=== PATIENT | female | born 1930 | race Caucasian/White ===

== ENCOUNTER 2016-11-03 18:53 | Emergency (ER) | payer MEDICARE ==
[~2016-11-03] VITALS: Ht 162.6 cm; Wt 114.7 kg
[~2016-11-03 18:53] MED LIST: ATEN1TAB74 PO; BACT800T5 PO; COQ1200C3 PO; COUM5TAB PO; MECL25CH PO; WARF6 PO; ZOFR4TAB3 SL
[2016-11-03 18:56] VITALS: BP 188/81; PULSE 68; RESP 20; TEMP 96; O2SAT 98
[2016-11-03] MEDS ORDERED: COUM7.5T PO (19:12)
[2016-11-03] MEDS ORDERED: MECL-62 PO (19:12)
[2016-11-03] MEDS ORDERED: ATEN50TA PO (19:12)
[2016-11-03] MEDS ORDERED: COQ-100C5 PO (19:12)
[2016-11-03] MEDS ORDERED: COUM10TA PO (19:12)
[2016-11-03 19:17] VITALS: BP 197/77; PULSE 73; O2SAT 96
--- NOTE | 2016-11-03 19:37 | PD ---
HPI Chief Complaint: Fall Time Seen by Provider: 19:27 Travel History International Travel<30 days: No Contact w/Intl Traveler<30days: No Traveled to known affect area: No History of Present Illness HPI The patient is an 86-year-old female that was cleaning the windows of a spiritism when she lost balance and fell. There was no loss of consciousness, she did hit her mid occipital area of the scalp. Her main complaint is pain in the low back, coccygeal area and bilateral pelvis. She is able to walk around but with pain and the pain gradually increased to where she finally came in. She did have some nausea following the fall but no vomiting. She denies any numbness, weakness or radiation of pain down her legs. She is on Coumadin for atrial fibrillation. She denies any headache. PFSH Past Medical History Hx Anticoagulant Therapy: Yes (COUMADIN) Arthritis: Yes Blood Disorders: No Heart Rhythm Problems: Yes (A FIB) Cancer: No Cardiovascular Problems: Yes (htn on meds, a-fib) Congestive Heart Failure: Yes Endocrine: No Genitourinary: No Hepatitis: No Hypertension: Yes Immune Disorder: No Kidney Stones: No Musculoskeletal: No Neurologic: No Psychiatric: No Reproductive: No Respiratory: No Immunizations Current: Yes (SHINGLES: 2014) Renal Failure: No Influenza Vaccination: Yes ?: Not : 5 Para: 5 Past Surgical History Abdominal Surgery: Yes AICD: No Appendectomy: Yes Arteriovenous Shunt: No Cardiac Surgery: No Cholecystectomy: Yes Ear Surgery: No Endocrine Surgery: No Eye Surgery: Yes (CATARACTS, RETINAL TEAR REPAIRS BILATERAL) Genitourinary Surgery: No Gynecologic Surgery: Yes Hysterectomy: Yes Insulin Pump: No Joint Replacement: Yes (BILATERAL KNEES) Oral Surgery: No Pacemaker: No Thoracic Surgery: No Other Surgery: No Social History Alcohol Use: No Tobacco Use: No (QUIT AGE 37) Substance Use: No Allergies-Medications (Allergen,Severity, Reaction): Coded Allergies: adhesive (Unverified Allergy, Intermediate, PT STATES NO ALLERGY TO THIS, 11/03/16) latex (Unverified Allergy, Intermediate, ITCHING/RASH, 11/03/16) Reported Meds & Prescriptions Reported Meds & Active Scripts Active Reported Coumadin (Warfarin) 10 Mg Tab 8 Mg PO DAILY Coumadin (Warfarin) 7.5 Mg Tab 7 Mg PO Meclizine (Meclizine HCl) 25 Mg Tab 25 Mg PO TID PRN Coq-10 Tr (Coenzyme Q10 (Ubidecarenone)) 100 Mg Cap 200 Mg PO HS Atenolol 50 Mg Tab 50 Mg PO DAILY Review of Systems Except as stated in HPI: all other systems reviewed are Neg Physical Exam Narrative GENERAL: The patient is obese, alert, oriented 3 and slight apparent distress with her low back pain. SKIN: Focused skin assessment warm/dry. HEAD: There is a contusion on the mid occipital area but no associated skull deformity. Normocephalic. Neither raccoon eyes nor quintana sign is present. EYES: Pupils equal and round. No scleral icterus. No injection or drainage. ENT: No nasal bleeding or discharge. Mucous membranes pink and moist. There is no hemotympanum present. NECK: Trachea midline. No JVD. CARDIOVASCULAR: Regular rate and rhythm. No murmur appreciated. RESPIRATORY: No accessory muscle use. Clear to auscultation. Breath sounds equal bilaterally. GASTROINTESTINAL: Abdomen soft, non-tender, nondistended. Hepatic and splenic margins not palpable. MUSCULOSKELETAL: No obvious deformities. No clubbing. No cyanosis. No edema. Straight leg raising is normal, deep tendon reflexes are 0 bilaterally both patella and Achilles and pinprick is normal. There is tenderness diffusely in the low back and over the coccygeal area. No obvious bony deformity is present. There is diffuse tenderness over both sides of the pelvis laterally. NEUROLOGICAL: Awake and alert. No obvious cranial nerve deficits. Motor grossly within normal limits. Normal speech. PSYCHIATRIC: Appropriate mood and affect; insight and judgment normal. Data Data Last Documented VS Vital Signs Date Time Temp Pulse Resp B/P (MAP) Pulse Ox O2 Delivery O2 Flow Rate FiO2 11/03/16 20:41 60 183/86 (118) 11/03/16 19:17 96 Room Air 11/03/16 18:56 [address] Brain W/O Iv Contrast(Rout) (11/03/16 19:27) Ct Lumb Spine W/O Contrast (11/03/16 19:27) Pelvis, Ap Only (Routine) (11/03/16 19:30) MDM Medical Decision Making Medical Screen Exam Complete: Yes Emergency Medical Condition: Yes Medical Record Reviewed: Yes Interpretation(s) The CT brain shows central cerebral atrophy and no acute infarct, hemorrhage or mass effect noted. The pelvis shows no acute fracture dislocation, mild degenerative changes involving the lumbar spine, bilateral hips and symphysis pubis are noted.The CT of the lumbar spine shows severe spinal stenosis and bilateral foraminal narrowing at L4 5 with moderate spinal stenosis and bilateral foraminal narrowing at L3-L4 and mild spinal stenosis with bilateral foraminal narrowing at L2-L3 and minimal disc bulge at L1-L2 and mild bilateral foraminal narrowing at L5-S1. There is fitted set joint hypertrophy bilaterally L1 through L5 and grade 1 anterior listhesis of L4 on L5. No fractures noted. Differential Diagnosis Compression fracture lumbar spine, fractured pelvis, fractured skull, intracranial bleed, scalp contusion, acute lumbar strain, multiple contusions Narrative Course The patient has significant foraminal narrowing of the lumbosacral spine on CT. She says she has a walker at home and can ambulate well with this. She will follow up with her primary care physician next week. 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 Use your walker at home for the next few days until these aches and pains subside. Do not drink alcohol or drive on the tramadol that I wrote. Med/Other Pt SpecificInfo: Prescription(s) given Scripts Tramadol (Tramadol) 50 Mg Tab 50 MG PO Q6H Y for PAIN, #15 TAB 0 Refills Prov: Eugene Peña MD 11/03/16 Disposition: 01 DISCHARGE HOME Condition: Stable Eugene Peña MD Nov 03, 2016 19:37
--- NOTE | 2016-11-03 19:53 | RADRPT ---
EXAM DATE/TIME: 11/03/2016 19:40 [facility] COMPARISON: No previous studies available for comparison. INDICATIONS : Status post fall. Hit back of head. RADIATION DOSE: 63.36 CTDIvol (mGy) MEDICAL HISTORY : Hypertension. SURGICAL HISTORY : cataract ENCOUNTER: Initial ACUITY: 1 day PAIN SCALE: 0/10 LOCATION: Cranial TECHNIQUE: Multiple contiguous axial images were obtained of the head. Using automated exposure control and adj ustment of the mA and/or kV according to patient size, radiation dose was kept as low as reasonably a chievable to obtain optimal diagnostic quality images. DICOM format image data is available electro nically for review and comparison. FINDINGS: There is central cerebral atrophy. There is no acute infarct, acute hemorrhage, mass effect or extra -axial fluid collections. No skull fracture is noted. CONCLUSION: 1. Central cerebral atrophy. 2. No acute infarct, acute hemorrhage, mass effect or extra-axial fluid collections. Joe Montalvo MD on November 03, 2016 at 19:49 Board Certified Radiologist. This report was verified electronically.
--- NOTE | 2016-11-03 20:25 | RADRPT ---
EXAM DATE/TIME: 11/03/2016 20:04 [facility] COMPARISON: No previous studies available for comparison. INDICATIONS : Trauma. Fall. MEDICAL HISTORY : None. SURGICAL HISTORY : Hysterectomy. Cholecystectomy. ENCOUNTER: Initial ACUITY: 1 day PAIN SCORE: 8/10 LOCATION: Pelvis FINDINGS: There is no acute fracture or dislocation of the bony pelvis. Mild degenerative changes are noted in volving the lower lumbar spine and bilateral hips. Mild degenerative changes are also noted involvin g the symphysis pubis. CONCLUSION: 1. No acute fracture or dislocation. 2. Mild degenerative changes involving the lumbar spine, bilateral hips and symphysis pubis. Joe Montalvo MD on November 03, 2016 at 20:21 Board Certified Radiologist. This report was verified electronically.
[2016-11-03 20:41] VITALS: BP 183/86; PULSE 60
--- NOTE | 2016-11-03 21:00 | RADRPT ---
EXAM DATE/TIME: 11/03/2016 19:44 [facility] COMPARISON: No previous studies available for comparison. INDICATIONS : Patient fell and hurt tailbone. Bilateral back and coccyx pain. RADIATION DOSE: 40.36 CTDIvol (mGy) MEDICAL HISTORY : Congestive heart failure. Hypertension. SURGICAL HISTORY : Appendectomy. Cholecystectomy. Hysterectomy. ENCOUNTER: Initial ACUITY: 1 day PAIN SCALE: 10/10 LOCATION: Bilateral buttock and lumbar TECHNIQUE: Volumetric scanning of the lumbar spine was performed. Multiplanar reconstructions in the sagittal, coronal and oblique axial planes were performed. Using automated exposure control and adjustment of the mA and/or kV according to patient size, radiation dose was kept as low as reasonably achievable t o obtain optimal diagnostic quality images. DICOM format image data is available electronically for review and comparison. FINDINGS: There is grade I anterolisthesis of L4 in relation to L5. Severe circumferential spinal stenosis and bilateral foraminal narrowing is noted at L4-L5. There is no acute compression fracture of the lumb ar spine. Mild scoliosis of the lumbar spine is noted. T12-L1: There is no significant spinal stenosis, disc bulge or herniation. The bilateral neural foramina are patent. The facet joints and ligaments are unremarkable. L1-L2: There is a minimal diffuse disc bulge as well as mild facet joint hypertrophy bilaterally resulting i n no spinal stenosis or neural foraminal narrowing. No focal disc herniation is noted. L2-L3: There is some mild spinal stenosis and bilateral foraminal narrowing secondary to a combination of di ffuse disc bulge, facet joint hypertrophy and ligamentous laxity. No focal disc herniation is noted. L3-L4: There is moderate circumferential spinal stenosis and bilateral foraminal narrowing secondary to a co mbination of diffuse disc bulge, facet joint hypertrophy and ligamentous laxity. No focal disc herni ation is noted. L4-L5: There is severe circumferential spinal stenosis and bilateral foraminal narrowing secondary to a comb ination of diffuse disc bulge, facet joint hypertrophy and ligamentous laxity. Vacuum facets are not ed bilaterally. There is grade I anterolisthesis of L4 in relation to L5. L5-S1: There is no significant spinal stenosis. Facet joint hypertrophy is noted bilaterally which results in mild bilateral foraminal narrowing. No focal disc herniation is noted. CONCLUSION: 1. Severe spinal stenosis and bilateral foraminal narrowing at L4-L5. 2. Moderate spinal stenosis and bilateral foraminal narrowing at L3-L4. 3. Mild spinal stenosis and bilateral foraminal narrowing at L2-L3. 4. Minimal diffuse disc bulge at L1-L2 resulting in no spinal stenosis or neural foraminal narrowing . 5. Mild bilateral foraminal narrowing at L5-S1 predominantly related to facet joint hypertrophy bila terally. 6. Facet joint hypertrophy bilaterally from L1 through S1. 7. Grade I anterolisthesis of L4 in relation to L5. Joe Montalvo MD on November 03, 2016 at 20:43 Board Certified Radiologist. This report was verified electronically.
[2016-11-03] MEDS ORDERED: TRAM50TA PO (21:33)
== END 2016-11-03 21:40 | disposition home or self-care (01) ==
LOC: PHED 18:53
DX: T14.8 Other injury of unspecified body region (principal); W01.0XXA Fall on same level from slipping, tripping and stumbling without subsequent striking against object, initial encounter; Y93.E9 Activity, other interior property and clothing maintenance; Y92.22 Religious institution as the place of occurrence of the external cause
CPT/HCPCS: 70450; 72131; 72170; 99285

== ENCOUNTER 2017-04-03 17:16 | Observation (INO) | payer MEDICARE ==
[~2017-04-03] VITALS: Ht 162.6 cm; Wt 115.6 kg
[2017-04-03] VITALS (9 sets, daily range): BP systolic 102–162; BP diastolic 60–80; PULSE 67–112; RESP 16–20; TEMP 96.6–97.5; O2SAT 96–100
[~2017-04-03 17:16] MED LIST changes: -ATEN1TAB74 PO; +ATEN50TA PO; -BACT800T5 PO; +COQ-100C5 PO; -COQ1200C3 PO; +COUM10TA PO; -COUM5TAB PO; +COUM7.5T PO; +MECL-62 PO; -MECL25CH PO; +TRAM50TA PO; -WARF6 PO; -ZOFR4TAB3 SL
[2017-04-03] MEDS ORDERED: TRIA1CAP6 PO (17:36)
[2017-04-03] MEDS ORDERED: SODIUM CHLORIDE 0.9% FLUSH 10 ML FLUSH IVF PRN (18:00)
[2017-04-03] MEDS ORDERED: DILTIAZEM HCL 25 MG/5 ML VIAL IV ONE ×2 (18:00→21:00)
--- NOTE | 2017-04-03 18:03 | PD ---
HPI Chief Complaint: Cardiac Complaint Time Seen by Provider: 17:52 Travel History International Travel<30 days: No Contact w/Intl Traveler<30days: No Traveled to known affect area: No History of Present Illness HPI 86-year-old female with history of A. fib on Coumadin, here for evaluation of elevated heart rate and chest heaviness. The patient reports for the last couple of days she has felt some palpitations. Today when she checked her blood pressure she noticed her heart rate was severely elevated. She has been having intermittent episodes of substernal chest heaviness over the last couple of days which is worse with exertion. She has history of CHF and is on Lasix. She reports that about 2 weeks ago she had a bilateral lower extremity duplex ordered by her primary care physician Dr. Lackey and was reportedly negative. She denies history of DVT or PE. States that her lower extremity edema is no worse than it usually is. She gets slightly short of breath with exertion. No orthopnea. No shortest of breath at rest. No cough. No fevers, chills, or recent illness. She does not see a dehydrogenation operator regularly. PFSH Past Medical History Hx Anticoagulant Therapy: Yes (COUMADIN) Arthritis: Yes Blood Disorders: No Heart Rhythm Problems: Yes (A FIB) Cancer: No Cardiac Catheterization: Yes (a fib) Cardiovascular Problems: Yes (A. FIB, HTN) Congestive Heart Failure: Yes Diminished Hearing: No Endocrine: No Genitourinary: No Hepatitis: No Hypertension: Yes Immune Disorder: No Kidney Stones: No Musculoskeletal: No Neurologic: No Psychiatric: No Reproductive: No Respiratory: No Immunizations Current: Yes (SHINGLES: 2014) Renal Failure: No Tetanus Vaccination: Unknown Influenza Vaccination: Yes ?: Not : 5 Para: 5 Past Surgical History Abdominal Surgery: Yes AICD: No Appendectomy: Yes Arteriovenous Shunt: No Cardiac Surgery: No Cholecystectomy: Yes Ear Surgery: No Endocrine Surgery: No Eye Surgery: Yes (CATARACTS, RETINAL TEAR REPAIRS BILATERAL) Genitourinary Surgery: No Gynecologic Surgery: Yes Hysterectomy: Yes Insulin Pump: No Joint Replacement: Yes (BILATERAL KNEES) Oral Surgery: No Pacemaker: No Thoracic Surgery: No Other Surgery: No Social History Alcohol Use: No Tobacco Use: No (QUIT AGE 37) Substance Use: No Allergies-Medications (Allergen,Severity, Reaction): Coded Allergies: adhesive (Unverified Allergy, Intermediate, PT STATES NO ALLERGY TO THIS, 04/03/17) latex (Unverified Allergy, Intermediate, ITCHING/RASH, 04/03/17) Reported Meds & Prescriptions Reported Meds & Active Scripts Active Reported Dyrenium (Triamterene) 50 Mg Cap 50 Mg PO DAILY Coumadin (Warfarin) 10 Mg Tab 8 Mg PO DAILY Coumadin (Warfarin) 7.5 Mg Tab 7 Mg PO Coq-10 Tr (Coenzyme Q10 (Ubidecarenone)) 100 Mg Cap 200 Mg PO HS Atenolol 50 Mg Tab 50 Mg PO DAILY Review of Systems Except as stated in HPI: all other systems reviewed are Neg Physical Exam Narrative GENERAL: Well-developed, well-nourished, pleasant, comfortable, no apparent distress. SKIN: Focused skin assessment warm/dry. HEAD: Atraumatic. Normocephalic. EYES: Pupils equal and round. No scleral icterus. No injection or drainage. ENT: Mucous membranes pink and moist. NECK: Trachea midline. No JVD. CARDIOVASCULAR: Irregularly irregular, rate 130s. RESPIRATORY: No accessory muscle use. Clear to auscultation. Breath sounds equal bilaterally. GASTROINTESTINAL: Abdomen soft, non-tender, nondistended. MUSCULOSKELETAL: No obvious deformities. No clubbing. No cyanosis. Significant bilateral lower extremity edema from foot to thigh. NEUROLOGICAL: Awake and alert. No obvious cranial nerve deficits. Motor grossly within normal limits. Normal speech. PSYCHIATRIC: Appropriate mood and affect; insight and judgment normal. Data Data Last Documented VS Vital Signs Date Time Temp Pulse Resp B/P (MAP) Pulse Ox O2 Delivery O2 Flow Rate FiO2 04/03/17 20:10 87 16 116/72 (87) Room Air 04/03/17 19:05 98 2.00 04/03/17 17:24 97.5 Orders Orders Electrocardiogram (04/03/17 17:59) Ckmb (Isoenzyme) Profile (04/03/17 17:59) Complete Blood Count With Diff (04/03/17 17:59) Comprehensive Metabolic Panel (04/03/17 17:59) Magnesium (Mg) (04/03/17 17:59) Prothrombin Time / Inr (Pt) (04/03/17 17:59) Act Partial Throm Time (Ptt) (04/03/17 17:59) Troponin I (04/03/17 17:59) Chest, Single Ap (04/03/17 17:59) Ecg Monitoring (04/03/17 17:59) Bilateral Bp Monitoring (04/03/17 17:59) Iv Access Insert/Monitor (04/03/17 17:59) Oximetry (04/03/17 17:59) Oxygen Administration (04/03/17 17:59) Sodium Chloride 0.9% Flush (Ns Flush) (04/03/17 18:00) Diltiazem Inj (Cardizem Inj) (04/03/17 18:00) Ct Pulmonary Angiogram (04/03/17 ) Iodixanol 320 Inj (Rad Ct) (Visipaque 32 (04/03/17 20:20) Diltiazem Inj (Cardizem Inj) (04/03/17 21:00) Diltiazem (Cardizem) (04/03/17 21:00) Admit Order (Ed Use Only) (04/03/17 20:55) Labs Laboratory Tests Test 04/03/17 17:47 White Blood Count 5.7 TH/MM3 Red Blood Count 4.53 MIL/MM3 Hemoglobin 13.9 GM/DL Hematocrit 42.5 % Mean Corpuscular Volume 93.7 FL Mean Corpuscular Hemoglobin 30.7 PG Mean Corpuscular Hemoglobin Concent 32.8 % Red Cell Distribution Width 13.0 % Platelet Count 158 TH/MM3 Mean Platelet Volume 8.7 FL Neutrophils (%) (Auto) 60.5 % Lymphocytes (%) (Auto) 29.1 % Monocytes (%) (Auto) 8.7 % Eosinophils (%) (Auto) 1.2 % Basophils (%) (Auto) 0.5 % Neutrophils # (Auto) 3.4 TH/MM3 Lymphocytes # (Auto) 1.7 TH/MM3 Monocytes # (Auto) 0.5 TH/MM3 Eosinophils # (Auto) 0.1 TH/MM3 Basophils # (Auto) 0.0 TH/MM3 CBC Comment DIFF FINAL Differential Comment Prothrombin Time 17.2 SEC Prothromb Time International Ratio 1.7 RATIO Activated Partial Thromboplast Time 29.9 SEC Blood Urea Nitrogen 30 MG/DL Creatinine 1.40 MG/DL Random Glucose 101 MG/DL Total Protein 7.3 GM/DL Albumin 3.5 GM/DL Calcium Level 8.7 MG/DL Magnesium Level 2.0 MG/DL Alkaline Phosphatase 60 U/L Aspartate Amino Transf (AST/SGOT) 26 U/L Alanine Aminotransferase (ALT/SGPT) 23 U/L Total Bilirubin 0.3 MG/DL Sodium Level 139 MEQ/L Potassium Level 4.0 MEQ/L Chloride Level 103 MEQ/L Carbon Dioxide Level 30.0 MEQ/L Anion Gap 6 MEQ/L Estimat Glomerular Filtration Rate 36 ML/MIN Total Creatine Kinase 81 U/L Troponin I LESS THAN 0.02 NG/ML [facility] Medical Decision Making Medical Screen Exam Complete: Yes Emergency Medical Condition: Yes Medical Record Reviewed: Yes Interpretation(s) EKG: A. fib, rate 125, normal axis, normal intervals, moderate ST depressions, no ST segment elevations. Differential Diagnosis A. fib with RVR, ACS, CHF, PE, metabolic abnormality Narrative Course Initial vital signs show heart rate 112, blood pressure 106/80, pulse ox 96% on room air, oral temp of 97.5F. CBC is unremarkable. CMP is remarkable for BUN 30, creatinine 1.4, GFR 36 which is slightly worse than her baseline. Cardiac enzymes are negative. INR is subtherapeutic at 1.7. Chest x-ray: CONCLUSION: 1. Mild cardiomegaly. Minimal basilar atelectasis. Patient was made aware of all laboratory findings. She tells me that for the last week she has been having a sharp pain in her right posterior back which is worsened with deep inspiration. CT pulmonary angiogram ordered to rule out a PE. CT pulmonary angiogram: CONCLUSION: 1. Negative for pulmonary embolus. Minimal dependent atelectasis in the lungs. Mild cardiomegaly. Patient was made aware of all findings. She was given 10 mg of IV Cardizem shortly after arriving to the emergency department for heart rate in the 120s to 130s. Her heart rate initially improved to 80s to 90s. On reassessment a few hours later her heart rate returned to 110-120. She was given another 10 mg of IV Cardizem. Given uncontrolled rate of A. fib with RVR, the patient will be admitted for further treatment and evaluation. Case discussed with [facility] hospitalist Dr zhou who has agreed to admit the patient to his service. Diagnosis Primary Impression: Atrial fibrillation with RVR Additional Impression: Chest pain Venancio Neil MD Apr 03, 2017 18:03
[2017-04-03 18:28] LABS: AUTOMATED NEUTROPHIL # 3.4 TH/MM3 (1.8-7.7); BASOPHIL % 0.5 % (0.0-2.0); EOSINOPHIL # 0.1 TH/MM3 (0-0.4); EOSINOPHIL % 1.2 % (0.0-4.0); HEMATOCRIT 42.5 % (35.0-46.0); HEMOGLOBIN 13.9 GM/DL (11.6-15.3); LYMPH % 29.1 % (9.0-44.0); LYMPHOCYTE # 1.7 TH/MM3 (1.0-4.8); MEAN CELL VOLUME 93.7 FL (80.0-100.0); MEAN CORPUSCULAR HEMOGLOBIN 30.7 PG (27.0-34.0); MEAN CORPUSCULAR HGB CONC 32.8 % (32.0-36.0); MEAN PLATELET VOLUME 8.7 FL (7.0-11.0); MONO % 8.7 % (0.0-8.0); MONOCYTE # 0.5 TH/MM3 (0-0.9); NEUT % 60.5 % (16.0-70.0); PLATELET COUNT 158 TH/MM3 (150-450); RED BLOOD COUNT 4.53 MIL/MM3 (4.00-5.30); WHITE BLOOD COUNT 5.7 TH/MM3 (4.0-11.0)
[2017-04-03 18:39] LABS: CHLORIDE 103 MEQ/L (98-107); SODIUM (NA) 139 MEQ/L (136-145)
[2017-04-03 18:42] LABS: ALBUMIN 3.5 GM/DL (3.4-5.0); BLOOD UREA NITROGEN 30 MG/DL (7-18); CALCIUM 8.7 MG/DL (8.5-10.1); GLUCOSE,RANDOM 101 MG/DL (74-106)
[2017-04-03 18:44] LABS: INTERNATIONAL NORMALIZED RATIO 1.7 RATIO; PROTHROMBIN TIME - PATIENT 17.2 SEC (9.8-11.6)
[2017-04-03 18:45] LABS: ALT (GPT) 23 U/L (10-53); AST (GOT) 26 U/L (15-37)
[2017-04-03 18:46] LABS: GLOMERULAR FILTRATION RATE 36 ML/MIN (>89)
[2017-04-03 18:47] LABS: TOTAL BILIRUBIN ADULT 0.3 MG/DL (0.2-1.0); TOTAL PROTEIN 7.3 GM/DL (6.4-8.2)
[2017-04-03 18:48] LABS: ALKALINE PHOSPHATASE 60 U/L (45-117)
[2017-04-03 18:51] LABS: TROPONIN I LESS THAN 0.02 NG/ML (0.02-0.05)
--- NOTE | 2017-04-03 19:39 | RADRPT ---
EXAM DATE/TIME: 04/03/2017 18:31 [facility] COMPARISON: No previous studies available for comparison. INDICATIONS : Chest pain. MEDICAL HISTORY : Congestive heart failure. Hypertension. SURGICAL HISTORY : Hysterectomy. Appendectomy. Cholecystectomy. ENCOUNTER: Initial ACUITY: 1 day PAIN SCORE: 5/10 LOCATION: Bilateral chest FINDINGS: A single view of the chest demonstrates a mild cardiomegaly No focal infiltrate or effusion. No pneum othorax. CONCLUSION: 1. Mild cardiomegaly. Minimal basilar atelectasis. Naresh Wren MD on April 03, 2017 at 19:35 Board Certified Radiologist. This report was verified electronically.
[2017-04-03] MEDS ORDERED: IODIXANOL 320 MG/ML 10 ML VIAL (for Rad CT) IVCONTRAST ONE (20:20)
--- NOTE | 2017-04-03 20:35 | RADRPT ---
EXAM DATE/TIME: 04/03/2017 20:13 [facility] COMPARISON: No previous studies available for comparison. INDICATIONS : Tachycardia. IV CONTRAST: 50 cc Visipaque (iodixanol) IV RADIATION DOSE: 12.64 CTDIvol (mGy) MEDICAL HISTORY : Cardiovascular disease. Congestive heart failure. Hypertension. SURGICAL HISTORY : None. ENCOUNTER: Initial ACUITY: 1 day PAIN SCALE: 0/10 LOCATION: chest TECHNIQUE: Volumetric scanning of the chest was performed using a pulmonary embolism protocol MIP images were re constructed. Using automated exposure control and adjustment of the mA and/or kV according to patien t size, radiation dose was kept as low as reasonably achievable to obtain optimal diagnostic quality images. DICOM format image data is available electronically for review and comparison. Follow-up recommendations for detected pulmonary nodules are based at a minimum on nodule size and pa tient risk factors according to Fleischner Society Guidelines. FINDINGS: No filling defects to suggest pulmonary embolus. No pleural or pericardial effusion. Mild basilar ate lectasis. No adenopathy. No pleural or pericardial effusion. No acute findings in the upper abdomen. Mild coronary calcifications. CONCLUSION: 1. Negative for pulmonary embolus. Minimal dependent atelectasis in the lungs. Mild cardiomegaly. Naresh Wren MD on April 03, 2017 at 20:31 Board Certified Radiologist. This report was verified electronically.
[2017-04-03] MEDS ORDERED: DILTIAZEM HCL 30 MG TAB PO ONE (21:00)
[2017-04-03] MEDS ORDERED: SODIUM CHLORIDE 0.9% FLUSH 10 ML FLUSH IV FLUSH PRN (21:30)
[2017-04-03] MEDS ORDERED: NITROGLYCERIN 0.4 MG SL 25 TABS/BTL SL PRN (21:30)
--- NOTE | 2017-04-03 21:45 | HHI.HP ---
HPI Service [facility] Hospitalists Primary Care Physician Leonard Lcakey MD Admission Diagnosis A. fib with RVR, chest pain Chief Complaint: chest discomfort/heaviness, Afib with elevated heart rate Travel History International Travel<30 Days: No Contact w/Intl Traveler <30 Da: No Traveled to Known Affected Are: No History of Present Illness 86-year-old female with history of A. fib on Coumadin, here for evaluation of elevated heart rate and chest heaviness. The patient reports for the last couple of days she has felt some palpitations. Today when she checked her blood pressure with home monitor she noticed her heart rate was severely elevated and was accompanied by chest fullness/pressure. She has been having intermittent episodes of substernal chest heaviness over the last couple of days which is worse with exertion. She has history of diastolic CHF and is on intermittent Lasix dosing as needed for edema. She reports that about 2 weeks ago she had a bilateral lower extremity duplex ordered by her primary care physician Dr. Lackey and was reportedly negative. She denies history of DVT or PE. States that her lower extremity edema is no worse than it usually is. She gets slightly short of breath with exertion which is actually chronic for her. No orthopnea. No shortest of breath at rest. No cough. No fevers, chills, or recent illness. She does not see a injection molder regularly. She presented to ER since she had never had the accompanying chest pressure with her Afib bouts in the past. Heart rate was up into 120-130s at times and she responded well to IV cardizem followed by oral IR cardizem last night. No more CP. Plan for stress test and possible d/c home later today depending on results. Review of Systems Constitutional: COMPLAINS OF: Fatigue, DENIES: Diaphoretic episodes, Fever, Weight gain, Weight loss, Chills, Dizziness, Change in appetite, Night Sweats Eyes: DENIES: Blurred vision, Diplopia, Eye inflammation, Eye pain, Vision loss , Photosensitivity, Double Vision Ears, nose, mouth, throat: DENIES: Tinnitus, Hearing loss, Vertigo, Nasal discharge, Oral lesions, Throat pain, Hoarseness, Ear Pain, Running Nose, Epistaxis, Sinus Pain, Toothache, Odynophagia Respiratory: COMPLAINS OF: Shortness of breath, DENIES: Apneas, Cough, Snoring , Wheezing, Hemoptysis, Sputum production Cardiovascular: COMPLAINS OF: Chest pain, Palpitations, Dyspnea on Exertion, Lower Extremity Edema, DENIES: Syncope, PND, Orthopnea, Claudication Gastrointestinal: DENIES: Abdominal pain, Black stools, Bloody stools, BRB per rectum, Constipation, Diarrhea, GERD, Nausea, Reflux, Vomiting, Difficulty Swallowing, Anorexia, See HPI Musculoskeletal: COMPLAINS OF: Muscle aches, Back pain, DENIES: Joint pain, Stiffness, Joint Swelling, Neck pain Hematologic/lymphatic: DENIES: Bruising, Lymphadenopathy Immunologic/allergic: DENIES: Eczema, Urticaria Neurologic: DENIES: Abnormal gait, Headache, Localized weakness, Paresthesias, Seizures, Speech Problems, Tremor, Poor Balance Psychiatric: DENIES: Anxiety, Confusion, Mood changes, Depression, Hallucinations, Agitation, Suicidal Ideation, Homicidal Ideation, Delusions, History of Bipolar, History of Schizophrenia Past Family Social History Past Medical History Atherosclerosis of the aorta Cervical degenerative disc disease CK D stage III Diastolic congestive heart failure Morbid obesity Hypertension Hyperlipidemia Paroxysmal atrial fibrillation Vitamin D deficiency Past Surgical History Appendectomy Left knee arthrosis plasty of the femoral condyles in 2006 Cataract surgery Cholecystectomy 1981 Oophorectomy and unilateral salpingo-oophorectomy Subsequent to this total abdominal hysterectomy in 1959 with cervix removal Total knee arthroplasty on the right in 2007 Reported Medications Coumadin (Warfarin) 8 Mg PO DAILY on SAT, SAT, SAT, SAT, SUN Coumadin (Warfarin) 7.5 Mg Tab 7 Mg PO Coq-10 Tr (Coenzyme Q10 (Ubidecarenone)) 100 Mg Cap 200 Mg PO HS Atenolol 50 Mg Tab 50 Mg PO DAILY Dyazide 27.5/25 one daily Allergies: Coded Allergies: adhesive (Unverified Allergy, Intermediate, PT STATES NO ALLERGY TO THIS, 04/03/17) latex (Unverified Allergy, Intermediate, ITCHING/RASH, 04/03/17) Family History Several family members had coronary artery disease and her mother had congestive heart failure Father had lung cancer Essentially noncontributory at this point Social History Patient smoked about 7-10 cigarettes a day in her early 20s but quit at age 29, no smoking since then Somewhat physically inactive, sedentary lifestyle Retired, 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 Lying flat in bed with no noted increased work of breathing. SKIN: No rashes, ecchymoses or lesions with the exception of venous stasis dermatitis bilateral lower extremities. Cool and dry. HEAD: Atraumatic. Normocephalic. No temporal or scalp tenderness. EYES: Pupils equal round and reactive. Extraocular motions intact. No scleral icterus. No injection or drainage. ENT: Nose without bleeding, purulent drainage or septal hematoma. Airway patent. NECK: Trachea midline. No JVD or lymphadenopathy. Supple, nontender, no meningeal signs. CARDIOVASCULAR: Irregularly irregular rhythm without murmurs, gallops, or rubs. Rate in 60s to 70s on my exam this morning. RESPIRATORY: Clear to auscultation. Breath sounds equal bilaterally. No wheezes , rales, or rhonchi. GASTROINTESTINAL: Abdomen soft, non-tender, nondistended. No hepato-splenomegaly , or palpable masses. No guarding. MUSCULOSKELETAL: Extremities without clubbing, cyanosis, or edema. No joint tenderness, effusion, or edema noted. Slight calf tenderness to palpation bilaterally which she reports is chronic. No cords palpable. NEUROLOGICAL: Awake and alert. Cranial nerves II through XII intact. Motor and sensory grossly within normal limits. Five out of 5 muscle strength in all muscle groups. Normal speech. Laboratory Laboratory Tests Test 04/03/17 17:47 White Blood Count 5.7 Red Blood Count 4.53 Hemoglobin 13.9 Hematocrit 42.5 Mean Corpuscular Volume 93.7 Mean Corpuscular Hemoglobin 30.7 Mean Corpuscular Hemoglobin Concent 32.8 Red Cell Distribution Width 13.0 Platelet Count 158 Mean Platelet Volume 8.7 Neutrophils (%) (Auto) 60.5 Lymphocytes (%) (Auto) 29.1 Monocytes (%) (Auto) 8.7 Eosinophils (%) (Auto) 1.2 Basophils (%) (Auto) 0.5 Neutrophils # (Auto) 3.4 Lymphocytes # (Auto) 1.7 Monocytes # (Auto) 0.5 Eosinophils # (Auto) 0.1 Basophils # (Auto) 0.0 CBC Comment DIFF FINAL Differential Comment Prothrombin Time 17.2 Prothromb Time International Ratio 1.7 Activated Partial Thromboplast Time 29.9 Blood Urea Nitrogen 30 Creatinine 1.40 Random Glucose 101 Total Protein 7.3 Albumin 3.5 Calcium Level 8.7 Magnesium Level 2.0 Alkaline Phosphatase 60 Aspartate Amino Transf (AST/SGOT) 26 Alanine Aminotransferase (ALT/SGPT) 23 Total Bilirubin 0.3 Sodium Level 139 Potassium Level 4.0 Chloride Level 103 Carbon Dioxide Level 30.0 Anion Gap 6 Estimat Glomerular Filtration Rate 36 Total Creatine Kinase 81 Troponin I LESS THAN 0.02 Result Diagram: 04/03/17174604/03/171746 Caprini VTE Risk Assessment Caprini VTE Risk Assessment: Mod/High Risk (score >= 2) Caprini Risk Assessment Model Point Value = 1 Point Value = 2 Point Value = 3 Point Value = 5 Age 41-60 Minor surgery BMI > 25 kg/m2 Swollen legs Varicose veins or History of unexplained or recurrent spontaneous Oral contraceptives or hormone replacement Sepsis (< 1 month) Serious lung disease, including pneumonia (< 1 month) Abnormal pulmonary function Acute myocardial infarction Congestive heart failure (< 1 month) History of inflammatory bowel disease Medical patient at bed rest Age 61-74 Arthroscopic surgery Major open surgery (> 45 min) Laparoscopic surgery (> 45 min) Malignancy Confined to bed (> 72 hours) Immobilizing plaster cast Central venous access Age >= 75 History of VTE Family history of VTE Factor V Leiden Prothrombin [id number] Lupus anticoagulant Anticardiolipin antibodies Elevated serum homocysteine Heparin-induced thrombocytopenia Other congenital or acquired thrombophilia Stroke (< 1 month) Elective arthroplasty Hip, pelvis, or leg fracture Acute spinal cord injury (< 1 month) Prophylaxis Regimen Total Risk Factor Score Risk Level Prophylaxis Regimen 0-1 Low Early ambulation 2 Moderate Order ONE of the following: *Sequential Compression Device (SCD) *Heparin 5000 units SQ BID 3-4 Higher Order ONE of the following medications: *Heparin 5000 units SQ TID *Enoxaparin/Lovenox 40 mg SQ daily (WT < 150 kg, CrCl > 30 mL/min) *Enoxaparin/Lovenox 30 mg SQ daily (WT < 150 kg, CrCl > 10-29 mL/min) *Enoxaparin/Lovenox 30 mg SQ BID (WT < 150 kg, CrCl > 30 mL/min) AND/OR *Sequential Compression Device (SCD) 5 or more Highest Order ONE of the following medications: *Heparin 5000 units SQ TID (Preferred with Epidurals) *Enoxaparin/Lovenox 40 mg SQ daily (WT < 150 kg, CrCl > 30 mL/min) *Enoxaparin/Lovenox 30 mg SQ daily (WT < 150 kg, CrCl > 10-29 mL/min) *Enoxaparin/Lovenox 30 mg SQ BID (WT < 150 kg, CrCl > 30 mL/min) AND *Sequential Compression Device (SCD) Assessment and Plan Problem List: (1) Chest pain ICD Codes: R07.9 - Chest pain, unspecified Status: Acute Plan: Certainly has risk factors for coronary disease given her age, hypertension and reported hyperlipidemia. Do not see an outpatient stress test done. Acute injury has been ruled out. We will provide stress test. We'll cancel cardiology consult. I discussed the case with Dr. Warren Mcghee and he was in agreement with current plan of care. Hopefully discharge home later today depending on stress test. (2) Atrial fibrillation with RVR ICD Codes: I48.91 - Unspecified atrial fibrillation Status: Acute Plan: She seems to respond to IV Cardizem. We'll try oral Cardizem and oral metoprolol. INR a bit subtherapeutic. We will increase her warfarin to 8 mg daily. (3) Hypertension ICD Codes: I10 - Essential (primary) hypertension Plan: Chronic. We'll provide medication as tolerated. (4) CKD (chronic kidney disease), stage III ICD Codes: N18.3 - Chronic kidney disease, stage 3 (moderate) Status: Chronic Plan: Monitor GFR. Stable. (5) Diastolic CHF ICD Codes: I50.30 - Unspecified diastolic (congestive) heart failure Status: Chronic Plan: No overt failure evident. Last echocardiogram on record from July 2016 and reveals an EF of around 55-60% with mildly dilated left atrium. Also noted mild to moderate mitral valve regurgitation and estimated pulmonary pressure was 39 mm which is borderline high. We'll not repeat echo at this point given lack of symptomatology of overt CHF. (6) Hyperlipidemia ICD Codes: E78.5 - Hyperlipidemia, unspecified Status: Chronic Plan: Patient does not appear to be on any lipid-lowering medication. LDL was 148 in June 2016. A repeat cholesterol panel has been ordered and will discuss possible initiation of medication. Code Status full Discussed Condition With Patient and ER provider. Problem Qualifiers (1) Chest pain: (2) Hypertension: Qualified Codes: I10 - Essential (primary) hypertension David Solorzano MD PhD Apr 03, 2017 21:45
[2017-04-03] MEDS: ASPIRIN 81 MG CHEW TAB CHEW SCH (22:13)
[2017-04-03 22:41] LABS: TROPONIN I LESS THAN 0.02 NG/ML (0.02-0.05)
[2017-04-04] VITALS (7 sets, daily range): BP systolic 109–176; BP diastolic 53–69; PULSE 63–76; RESP 12–18; TEMP 96.2–97.6; O2SAT 94–97
--- NOTE | 2017-04-04 00:20 | EKG ---
Date Performed: 04/03/2017 Time Performed: 21:49:30 PTAGE: 86 years EKG: ATRIAL FIBRILLATION INTRAVENTRICULAR CONDUCTION DELAY NON-SPECIFIC ST/T WAVE CHANGES ABNORM AL ECG PREVIOUS TRACING : 04/03/2017 18.04 Since the prior tracing, there has been no significant mckeon DOCTOR: Mirza Nelson Interpretating Date/Time 04/04/2017 00:19:27
--- NOTE | 2017-04-04 00:32 | EKG ---
Date Performed: 04/03/2017 Time Performed: 18:04:17 PTAGE: 86 years EKG: ATRIAL FIBRILLATION WITH RAPID VENTRICULAR RESPONSE LOW QRS VOLTAGE IN PRECORDIAL LEADS MOD ERATE ST DEPRESSION ABNORMAL ECG PREVIOUS TRACING : 05/22/2007 12.37 Compared to prior tracing, now in AFib with RVR with some ST/T wave changes DOCTOR: Mirza Nelson Interpretating Date/Time 04/04/2017 00:30:45
[2017-04-04 03:30] LABS: TROPONIN I LESS THAN 0.02 NG/ML (0.02-0.05)
[2017-04-04] MEDS ORDERED: TRIA37.53 PO (08:33)
[2017-04-04] MEDS ORDERED: VITA3000 PO (08:33)
[2017-04-04] MEDS ORDERED: POTA10TA2 PO (08:33)
[2017-04-04] MEDS ORDERED: FURO20TA PO (08:33)
[2017-04-04] MEDS ORDERED: VITA100T50 PO (08:33)
[2017-04-04] MEDS: ASPIRIN 81 MG CHEW TAB CHEW SCH (08:38)
[2017-04-04] MEDS ORDERED: METOPROLOL TARTRATE 25 MG TAB PO SCH (09:00)
[2017-04-04] MEDS ORDERED: SODIUM CHLORIDE 0.9% FLUSH 10 ML FLUSH IV FLUSH SCH (09:00)
[2017-04-04 09:30] LABS: INTERNATIONAL NORMALIZED RATIO 1.4 RATIO; PROTHROMBIN TIME - PATIENT 14.2 SEC (9.8-11.6)
[2017-04-04 09:53] LABS: BICARBONATE 29.6 MEQ/L (21.0-32.0); CALCIUM 8.8 MG/DL (8.5-10.1)
[2017-04-04 09:57] LABS: CREATININE 0.95 MG/DL (0.50-1.00)
[2017-04-04 12:12] LABS: CHOLESTEROL/ HDL RATIO 4.47 RATIO; HDL CHOLESTEROL 44.2 MG/DL (40.0-60.0)
[2017-04-04] MEDS ORDERED: REGADENOSON INJ 0.4 MG/5 ML SYR IV ONE (14:15)
--- NOTE | 2017-04-04 15:35 | RADRPT ---
EXAM DATE/TIME: 04/04/2017 13:31 [place] COMPARISON: No previous studies available for comparison. INDICATIONS : Chest pain. DOSE: 30.1 mCi Tc99m Myoview at stress. 10.8 mCi Tc99m Myoview at rest. 0.4 mg Lexiscan STRESS SYMPTOMS: Shortness of breath. EJECTION FRACTION: 70% MEDICAL HISTORY : Hypertension. SURGICAL HISTORY : Appendectomy. Cholecystectomy. Hysterectomy. ENCOUNTER: Initial ACUITY: 1 day PAIN SCALE: 3/10 LOCATION: Bilateral chest TECHNIQUE: The patient underwent pharmacologic stress with infusion of prescribed dose. Continuous ECG tracing was monitored during stress. Gated SPECT imaging was performed after stress and conventional SPECT i maging was performed at rest. The examination was performed on a SPECT/CT scanner, both attenuation and non-corrected datasets were reviewed. FINDINGS: DISTRIBUTION: The maximum perfused segment at stress is in the anterior wall. PERFUSION STUDY: The pattern of perfusion at stress is within normal limits. GATED STUDY: There is intact wall motion and thickening without hypokinetic or dyskinetic segments. CONCLUSION: No focal wall motion abnormalities. No reversible perfusion defects. RISK CATEGORY: 1- Low Risk. Hawk Gabriel MD on April 04, 2017 at 15:32 Board Certified Radiologist. This report was verified electronically.
[2017-04-04] MEDS ORDERED: WARFARIN SOD 4 MG TAB PO SCH (16:00)
[2017-04-04] MEDS ORDERED: DILTIAZEM HCL 30 MG TAB PO ONE (16:00)
[2017-04-04] MEDS ORDERED: METO25TA3 PO (16:07)
[2017-04-04] MEDS ORDERED: ATOR10TA15 PO (16:11)
[2017-04-04] MEDS ORDERED: COENZYME Q10 200 MG PO SCH (21:00)
--- NOTE | 2017-04-04 23:32 | EKG ---
Date Performed: 04/04/2017 Time Performed: 02:44:05 PTAGE: 86 years EKG: Sinus rhythm NORMAL ECG PREVIOUS TRACING : 04/03/2017 21.49 Compared to prior tracing, now in normal sinus rhythm DOCTOR: Mirza Nelson Interpretating Date/Time 04/04/2017 23:31:56
== END 2017-04-04 16:41 | disposition home or self-care (01) ==
LOC: PHED 17:16 → INTOOBSV 20:55 → PHEDA 20:55 → PH3B 22:54
PROVIDERS: ADMIT Family Medicine; ATTEND Family Medicine
DX: I13.0 Hypertensive heart and chronic kidney disease with heart failure and stage 1 through stage 4 chronic kidney disease, or unspecified chronic kidney disease (principal); I50.32 Chronic diastolic (congestive) heart failure; I48.0 Paroxysmal atrial fibrillation; N18.3 Chronic kidney disease, stage 3 (moderate); R00.2 Palpitations; E78.5 Hyperlipidemia, unspecified
CPT/HCPCS: 71045; 71275; 78452; 80048; 80053; 80061; 82550; 83735; 84484; 85025; 85610; 85730; 93005; 93017; 96374; 96376; 99285; A9502; G0378; J2785; Q9967